=== PATIENT | male | born 1950 ===

== ENCOUNTER → 2018-10-18 21:23 | Outpatient (ROUT) | payer MEDICARE, SELFPAY ==
[2018-10-18 22:56] LABS: Add Manual Diff / Slide Review NO; Basophils Absolute Auto 100 /uL (0-100); Basophils Percent Auto 0.8 % (0-2); Eosinophils Absolute Auto 500 /uL (0-450); Hematocrit 37.3 % (41-53); Hemoglobin 12.6 g/dL (13.5-17.5); Lymphocytes Absolute Auto 2200 /uL (1100-4500); Lymphocytes Percent Auto 23.8 % (25-40); Mean Corpuscular HGB Conc 33.8 % (30-36); Mean Corpuscular Hemoglobin 29.5 PG (26-34); Mean Corpuscular Volume 87.3 fL (80-100); Monocytes Absolute Auto 800 /uL (0-900); Monocytes Percent Auto 9.1 % (3-14); Neutrophils Absolute Auto 5700 /uL (1500-7000); Neutrophils Percent Auto 61.3 % (50-75); Platelet Count 366 X10^3/uL (150-400); Red Blood Cell Count 4.28 X10^6/uL (4.5-5.9); Red Cell Distribution Width 14.1 % (11.6-14.8); White Blood Cell Count 9.3 X10^3/uL (4.5-11.0)
[2018-10-18 23:28] LABS: Erythrocyte Sedimentation Rate 74 MM/HR (0-15)
== END ==
PROVIDERS: Visit Provider Family Medicine
DX: J20.9 Acute bronchitis, unspecified (principal); R06.02 Shortness of breath; R53.1 Weakness; B37.82 Candidal enteritis; R05 Cough
CPT/HCPCS: 36415; 85025; 85651; 86615; 86738